=== PATIENT | male | born 1950 | race Caucasian/White ===

== ENCOUNTER 2021-03-25 06:52 | Inpatient (IN) | payer MEDICARE, MEDICAID ==
[~2021-03-25] VITALS: Ht 170.2 cm; Wt 80.3 kg
[2021-03-25] MEDS ORDERED: ACETAMINOPHEN 325MG TABLET PO ONE (07:30)
[2021-03-25 10:04] LABS: BG BASE EXCESS -0.5 mmol/L (-2.0-2.0); BG CARBOXYHEMOGLOBIN 1.6 % (0.5-1.5); BG DEOXYHEMOGLOBIN 6.1 % (0.0-5.0); BG FRACTION INSPIRED OXYGEN 21; BG HCO3 ACT 26.6 mmol/L (22.0-26.0); BG OXYGEN SATURATION 93.8 % (92.0-98.5); BG OXYHEMOGLOBIN 92.3 % (94.0-97.0); BG PCO2 54.5 mmHg (35.0-45.0); BG PH 7.306 (7.350-7.450); BG PO2 73.1 mmHg (75.0-100.0); BG SAMPLE SITE LEFT BRACHIAL; BG TOTAL HEMOGLOBIN 12.8 g/dL (12.0-18.0); BG VENT MODE ROOM AIR
[2021-03-25 10:31] LABS: HEMATOCRIT. 27.7 % (42.0-52.0); HEMOGLOBIN. 9.5 g/dL (14.0-18.0); MEAN CORPUSCULAR HEMOGLOBIN 32.9 pg (28.0-32.0); MEAN CORPUSCULAR VOLUME 95.9 fL (80.0-94.0); MEAN PLATELET VOLUME 7.9 fl (7.4-10.4); PLATELET 158 x1000/uL (130-400); RED BLOOD CELL COUNT 2.89 mill/uL (4.7-6.1)
[2021-03-25 10:35] LABS: CHLORIDE 103 mEq/L (98-107)
[2021-03-25 13:07] LABS: PLATELET ESTIMATE NORMAL
[2021-03-25 13:38] LABS: BG BASE EXCESS 0.6 mmol/L (-2.0-2.0); BG CARBOXYHEMOGLOBIN 0.6 % (0.5-1.5); BG DEOXYHEMOGLOBIN 0.1 % (0.0-5.0); BG FRACTION INSPIRED OXYGEN 100; BG HCO3 ACT 26.7 mmol/L (22.0-26.0); BG METHEMOGLOBIN 0.1 % (0.0-1.5); BG OXYGEN SATURATION 99.9 % (92.0-98.5); BG OXYHEMOGLOBIN 99.2 % (94.0-97.0); BG PCO2 48.6 mmHg (35.0-45.0); BG PH 7.357 (7.350-7.450); BG PO2 458.9 mmHg (75.0-100.0); BG SAMPLE SITE LEFT BRACHIAL; BG TOTAL HEMOGLOBIN 13.1 g/dL (12.0-18.0); BG VENT MODE MASK - BIPAP
[2021-03-25] MEDS ORDERED: ACETAMINOPHEN 325MG TABLET PO PRN (13:45)
[2021-03-25] MEDS ORDERED: CLONIDINE 0.1MG TABLET PO PRN (13:45)
[2021-03-25] MEDS ORDERED: HYDROCODONE/ACETAMINOPHEN 5/325MG TABLET PO PRN (13:45)
[2021-03-25] MEDS ORDERED: DEXTROSE 50% WATER 50ML SYRINGE IV PRN (14:00)
[2021-03-25 17:00] VITALS: BP 127/48
[2021-03-25] MEDS: INSULIN LISPRO 100 UNITS/ML SUBCUT SCH ×2 (17:15→21:00)
[2021-03-25] MEDS: BLOOD SUGAR DIAGNOSTIC STRIP TEST SCH ×2 (17:19→21:00)
[2021-03-25] MEDS ORDERED: METO-539 PO (18:15)
[2021-03-25] MEDS ORDERED: SEVE800T8 PO (18:15)
[2021-03-25] MEDS ORDERED: AMIT10TA6 PO (18:15)
[2021-03-25] MEDS ORDERED: AMLO10TA80 PO (18:15)
[2021-03-25] MEDS ORDERED: CLOP-31 PO (18:15)
[2021-03-25] MEDS ORDERED: ASPI-1497 PO (18:15)
[2021-03-25] MEDS ORDERED: ALPR2TAB2 PO (18:15)
[2021-03-25] MEDS ORDERED: PANT40SU PO (18:15)
[2021-03-25] MEDS ORDERED: CINA90TA PO (18:15)
[2021-03-25] MEDS ORDERED: ATOR-2 PO (18:15)
[2021-03-25 18:21] LABS: CREATINE KINASE 113 IU/L (39-308)
[2021-03-25 18:22] LABS: CREATINE KINASE MB FRACTION 4.5 ng/mL (0.5-3.6)
[2021-03-25] MEDS: HYDROMORPHONE HCL/PF 2MG/ML CPJ IM PRN (18:30)
[2021-03-25 18:45] VITALS: BP 127/48
[2021-03-25 20:00] VITALS: BP 138/55
[2021-03-25 20:13] LABS: HEPATITIS B SURFACE ANTIGEN NEGATIVE
[2021-03-25 20:43] LABS: HEPATITIS A AB IGM NEGATIVE (NEGATIVE)
[2021-03-25] MEDS ORDERED: PNEUMOCOCCAL 23-VAL P-SAC VAC 0.5 ML IM ONE (20:45)
[2021-03-25] MEDS: IPRATROPIUM/ALBUTEROL 0.5-3(2.5)MG/3ML NEB HHN SCH (21:21)
[2021-03-25 23:13] LABS: CREATINE KINASE 102 IU/L (39-308)
[2021-03-25 23:15] LABS: CREATINE KINASE MB FRACTION 4.2 ng/mL (0.5-3.6)
[2021-03-26] VITALS: BP 122/62
[2021-03-26] MEDS: HYDROMORPHONE HCL/PF 2MG/ML CPJ IM PRN ×2 (00:28→06:33)
[2021-03-26] MEDS: IPRATROPIUM/ALBUTEROL 0.5-3(2.5)MG/3ML NEB HHN SCH ×6 (00:37→21:06)
[2021-03-26 04:00] VITALS: BP 122/62
[2021-03-26] MEDS: INSULIN LISPRO 100 UNITS/ML SUBCUT SCH ×4 (06:32→20:45)
[2021-03-26] MEDS: BLOOD SUGAR DIAGNOSTIC STRIP TEST SCH ×4 (06:32→20:45)
[2021-03-26 06:38] LABS: HEMOGLOBIN. 8.9 g/dL (14.0-18.0); MEAN CORPUSCULAR HEMOGLOBIN 33.1 pg (28.0-32.0); MEAN CORPUSCULAR VOLUME 96.8 fL (80.0-94.0); MEAN PLATELET VOLUME 7.9 fl (7.4-10.4); PLATELET 149 x1000/uL (130-400); RED BLOOD CELL COUNT 2.69 mill/uL (4.7-6.1); RED CELL DISTRIBUTION WIDTH 15.6 % (11.6-14.6)
[2021-03-26 08:00] VITALS: BP 134/64
[2021-03-26] MEDS: HYDROCODONE/ACETAMINOPHEN 10/325MG TABLET PO PRN (10:05)
[2021-03-26 10:18] LABS: PLATELET ESTIMATE NORMAL
[2021-03-26 12:00] VITALS: BP 126/57
[2021-03-26] MEDS: AMLODIPINE 10MG TABLET PO SCH (12:19)
[2021-03-26] MEDS: ASPIRIN 81MG EC TABLET PO SCH (12:19)
[2021-03-26] MEDS: CLOPIDOGREL 75MG TABLET PO SCH (12:19)
[2021-03-26] MEDS: METOPROLOL TARTRATE 50MG TABLET PO SCH ×2 (12:20→16:57)
[2021-03-26] MEDS: SEVELAMER CARBONATE 800 MG TABLET PO SCH ×2 (12:25→16:54)
[2021-03-26 16:00] VITALS: BP 113/31
[2021-03-26] MEDS ORDERED: HYDROMORPHONE HCL/PF 2MG/ML CPJ IM PRN (16:15)
[2021-03-26] MEDS: HYDROMORPHONE HCL/PF 2MG/ML CPJ IV PRN ×2 (16:57→23:27)
[2021-03-26 20:00] VITALS: BP 116/32
[2021-03-26 20:12] LABS: T4 FREE 0.71 ng/dL (0.76-1.46)
[2021-03-26] MEDS ORDERED: DIPHENHYDRAMINE 25MG CAPSULE PO PRN (20:15)
[2021-03-26] MEDS: CINACALCET HCL 90MG TABLET PO SCH (20:39)
[2021-03-26] MEDS: ATORVASTATIN CALCIUM 40MG TABLET PO SCH (20:39)
[2021-03-26] MEDS: AMITRIPTYLINE 10MG TABLET PO SCH (20:39)
[2021-03-26] MEDS ORDERED: EPOETIN ALFA-EPBX 4,000 UNIT/ML VIAL SUBCUT SCH (21:00)
[2021-03-26] MEDS ORDERED: HYDROMORPHONE HCL/PF 2MG/ML CPJ IV PRN (22:15)
[2021-03-27] VITALS: BP 104/36
[2021-03-27] MEDS: IPRATROPIUM/ALBUTEROL 0.5-3(2.5)MG/3ML NEB HHN SCH ×6 (00:23→20:48)
[2021-03-27] MEDS: ONDANSETRON HCL 4MG/2ML INJ IV PRN (03:14)
[2021-03-27 04:00] VITALS: BP 102/34
[2021-03-27] MEDS: SEVELAMER CARBONATE 800 MG TABLET PO SCH ×3 (06:24→17:49)
[2021-03-27] MEDS: PANTOPRAZOLE SODIUM 40 MG/VIAL IV SCH (06:24)
[2021-03-27] MEDS: INSULIN LISPRO 100 UNITS/ML SUBCUT SCH ×4 (06:25→21:00)
[2021-03-27] MEDS: HYDROMORPHONE HCL/PF 2MG/ML CPJ IV PRN ×3 (06:25→19:41)
[2021-03-27] MEDS: BLOOD SUGAR DIAGNOSTIC STRIP TEST SCH ×4 (06:25→21:40)
[2021-03-27 07:27] LABS: FOLIC ACID (FOLATE) SERUM 9.5 ng/mL (>5.38)
[2021-03-27 08:00] VITALS: BP 108/47
[2021-03-27] MEDS: METOPROLOL TARTRATE 50MG TABLET PO SCH ×2 (08:29→16:28)
[2021-03-27] MEDS: ASPIRIN 81MG EC TABLET PO SCH (08:29)
[2021-03-27] MEDS: CLOPIDOGREL 75MG TABLET PO SCH (08:29)
[2021-03-27] MEDS: AMLODIPINE 10MG TABLET PO SCH (08:30)
[2021-03-27 12:00] VITALS: BP 115/60
[2021-03-27] MEDS: CYANOCOBALAMIN 1000MCG/ML VIAL IM SCH (13:32)
[2021-03-27 16:00] VITALS: BP 104/53
[2021-03-27] MEDS ORDERED: HEPARIN SODIUM 1,000 UNIT/1ML VIAL IV NR (16:15)
[2021-03-27 20:00] VITALS: BP 128/56
[2021-03-27] MEDS: ATORVASTATIN CALCIUM 40MG TABLET PO SCH (21:39)
[2021-03-27] MEDS: AMITRIPTYLINE 10MG TABLET PO SCH (21:39)
[2021-03-27] MEDS: CINACALCET HCL 90MG TABLET PO SCH (21:39)
[2021-03-28] VITALS: BP 101/54
[2021-03-28] MEDS: IPRATROPIUM/ALBUTEROL 0.5-3(2.5)MG/3ML NEB HHN SCH ×4 (00:51→12:31)
[2021-03-28] MEDS: HYDROMORPHONE HCL/PF 2MG/ML CPJ IV PRN ×2 (01:54→08:16)
[2021-03-28 04:00] VITALS: BP 109/65
[2021-03-28] MEDS: HYDROCODONE/ACETAMINOPHEN 10/325MG TABLET PO PRN (04:52)
[2021-03-28] MEDS: ONDANSETRON HCL 4MG/2ML INJ IV PRN (06:49)
[2021-03-28] MEDS: BLOOD SUGAR DIAGNOSTIC STRIP TEST SCH ×2 (07:01→11:31)
[2021-03-28] MEDS: INSULIN LISPRO 100 UNITS/ML SUBCUT SCH ×2 (07:01→11:34)
[2021-03-28 08:00] VITALS: BP 123/62
[2021-03-28] MEDS: SEVELAMER CARBONATE 800 MG TABLET PO SCH ×2 (08:14→11:31)
[2021-03-28] MEDS: CLOPIDOGREL 75MG TABLET PO SCH (08:15)
[2021-03-28] MEDS: METOPROLOL TARTRATE 50MG TABLET PO SCH (08:15)
[2021-03-28] MEDS: AMLODIPINE 10MG TABLET PO SCH (08:15)
[2021-03-28] MEDS: ASPIRIN 81MG EC TABLET PO SCH (08:18)
[2021-03-28] MEDS: CYANOCOBALAMIN 1000MCG/ML VIAL IM SCH (08:20)
[2021-03-28] MEDS: PANTOPRAZOLE SODIUM 40 MG/VIAL IV SCH (08:20)
[2021-03-28 09:34] VITALS: BP 123/62
[2021-03-28 12:00] VITALS: BP 95/48
[2021-04-10] MEDS ORDERED: CYANOCOBALAMIN 1000MCG/ML VIAL IM SCH (09:00)
== END 2021-03-28 14:35 | DRG 82 ==
LOC: ER 06:52 → 5WST 11:50 → EDBEDREQTM 11:56 → EDBEDREQSVC 11:56 → EDBEDREQ 11:56 → EDBEDREQSVC 12:36 → ENRESERV 15:40
PROVIDERS: ADMIT Internal Medicine; ATTEND Internal Medicine
PROC: 5A1D70Z Performance of Urinary Filtration, Intermittent, Less than 6 Hours Per Day (ICD-10-PCS; principal; 2021-03-25)
PROC: 5A09357 Assistance with Respiratory Ventilation, Less than 24 Consecutive Hours, Continuous Positive Airway Pressure (ICD-10-PCS; 2021-03-25)
PROC: 5A1D70Z Performance of Urinary Filtration, Intermittent, Less than 6 Hours Per Day (ICD-10-PCS; 2021-03-26)
DX: S06.9X9A Unspecified intracranial injury with loss of consciousness of unspecified duration, initial encounter (principal); G92 Toxic encephalopathy; G82.50 Quadriplegia, unspecified; N18.6 End stage renal disease; J96.92 Respiratory failure, unspecified with hypercapnia; I12.0 Hypertensive chronic kidney disease with stage 5 chronic kidney disease or end stage renal disease; M87.9 Osteonecrosis, unspecified; W05.0XXA Fall from non-moving wheelchair, initial encounter; E11.42 Type 2 diabetes mellitus with diabetic polyneuropathy; M75.02 Adhesive capsulitis of left shoulder; E11.22 Type 2 diabetes mellitus with diabetic chronic kidney disease; E53.8 Deficiency of other specified B group vitamins; I25.10 Atherosclerotic heart disease of native coronary artery without angina pectoris; J32.0 Chronic maxillary sinusitis; M51.16 Intervertebral disc disorders with radiculopathy, lumbar region; M47.26 Other spondylosis with radiculopathy, lumbar region; G89.4 Chronic pain syndrome; M47.812 Spondylosis without myelopathy or radiculopathy, cervical region; D64.9 Anemia, unspecified; E78.00 Pure hypercholesterolemia, unspecified; M85.80 Other specified disorders of bone density and structure, unspecified site; F17.200 Nicotine dependence, unspecified, uncomplicated; J01.90 Acute sinusitis, unspecified; Y93.89 Activity, other specified; Z82.49 Family history of ischemic heart disease and other diseases of the circulatory system; Z95.1 Presence of aortocoronary bypass graft; Z99.2 Dependence on renal dialysis; Z83.3 Family history of diabetes mellitus; Y92.89 Other specified places as the place of occurrence of the external cause; Y99.8 Other external cause status; Z89.432 Acquired absence of left foot; Z89.431 Acquired absence of right foot
CPT/HCPCS: 36415; 36600; 70551; 71045; 72141; 73030; 80048; 80053; 82140; 82306; 82375; 82550; 82553; 82607; 82746; 82805; 82962; 83036; 83880; 84439; 84443; 84481; 84484; 85025; 86705; 86709; 86803; 87340; 90732; 93005; 93970; 94640; 94660; 97162; 97166; 97530; 99291; C1893; C9113; J0885; J1170; J1644; J2405; J3420; Q0163